=== PATIENT | female | born 1960 | race Caucasian/White ===

== ENCOUNTER 2016-12-31 11:14 | Emergency (ER) | payer OTHER ==
[2016-12-31 11:29] VITALS: BP 122/74; PULSE 61; RESP 16; TEMP 98.2; O2SAT 94
[2016-12-31 11:40] LABS: COLOR ORANGE
[2016-12-31 11:52] LABS: BACTERIA 2+ /hpf (NONE SEEN); RENAL EPITHELIAL CELLS OCCASIONAL /hpf (NONE SEEN)
--- NOTE | 2016-12-31 12:11 | UCPHY ---
H & P Time Seen by Provider: 12/31/16 11:51 Patient Type: Established HPI/ROS: This patient complains of dysuria, frequency and urgency since yesterday. The symptoms are similar to prior bladder infections. She notes no exacerbating or alleviating factors. She reports the intensity of the symptoms as moderate. ROS: No fevers or chills. No other constitutional symptoms. : No flank pain. No vaginal discharge. GI: No vomiting. 5 point ROS is otherwise negative. Past Medical/Surgical History: Otherwise healthy except for GERD and depression Smoking Status: Former smoker Physical Exam: Physical Exam Vital signs are normal. General: No acute distress Eyes: Pupils equal and react to light. Extraocular motions are intact. Lungs: No respiratory distress. Cardiac: Brisk capillary refill is intact throughout. Abdomen: Soft, mild suprapubic tenderness with no guarding or rebound. Back: No CVA tenderness Skin: No rash or pallor. Neuro: Alert and oriented x3 with no sensorimotor deficits. INITIAL DIFFERENTIAL DIAGNOSIS: After history and physical exam differential diagnosis was considered for cystitis, interstitial cystitis, pyelonephritis, ureteral stone. Constitutional: Initial Vital Signs Temperature (C) 36.8 C 12/31/16 11:15 Heart Rate 61 12/31/16 11:15 Respiratory Rate 16 12/31/16 11:15 Blood Pressure 122/74 H 12/31/16 11:15 O2 Sat (%) 94 12/31/16 11:15 O2 Delivery Mode Room Air Allergies/Adverse Reactions: No Known Allergies Allergy (Verified 12/31/16 11:24) Home Medications: Medication Instructions Recorded LORAZEPAM 05/11/16 Omeprazole 05/11/16 Sertraline HCl 05/11/16 Cephalexin [Keflex (*)] 500 mg PO TID #21 cap 12/31/16 Phenazopyridine HCl [Pyridium 200 mg PO TID PRN #6 tab 12/31/16 200mg (RX)] MDM/Departure - MDM Diagnostics: Urinalysis consistent with UTI ED Course/Re-evaluation: Patient's findings are consistent with cystitis without current evidence of pyelonephritis clinically. - Depart Disposition: Home, Routine, Self-Care Clinical Impression: Cystitis Condition: Good Instructions: Urinary Tract Infection in Women (ED) Additional Instructions: Diagnosis: Bladder infection Plan: Drink plenty fluids Keflex antibiotic Peridium for burning with urination if needed Ibuprofen Tylenol in addition if needed for discomfort Return for any significant worsening despite treatment plan. Prescriptions: Cephalexin [Keflex (*)] 500 mg PO TID #21 cap Phenazopyridine HCl [Pyridium 200mg (RX)] 200 mg PO TID PRN #6 tab PRN Reason: dysuria Referrals: MD [place] [Other] - As per Instructions - PQRS PQRS Measurement: NA
== END 2016-12-31 12:13 | disposition home or self-care (01) ==
LOC: CED 11:14
DX: N30.90 Cystitis, unspecified without hematuria (principal); Z87.891 Personal history of nicotine dependence
CPT/HCPCS: 81003-PO; 81015-PO; 99214-PO; G0463-PO